=== PATIENT | male | born 1970 | race Caucasian/White ===

== ENCOUNTER 2024-09-08 12:59 | Emergency (ER) | payer SELFPAY ==
[~2024-09-08] VITALS: Ht 170.1 cm; Wt 65.8 kg
[~2024-09-08 12:59] MED LIST: DOXYCYCLINE MO100 MG PO; TRAMADOL HCL50 MG PO
[2024-09-08] MEDS ORDERED: SODIUM CHLORIDE 0.9% 1,000 ML IV ONE (13:15)
[2024-09-08] MEDS ORDERED: Ondansetron Hydrochloride 4 MG/2 ML VIAL IV ONE (13:20)
[2024-09-08 13:31] LABS: BASO # 0.1 10*3/uL (0.0-0.1); BASO % 0.4 % (0.0-1.0); EOS # 0.1 10*3/uL (0.0-0.4); EOS % 0.4 % (1.0-4.0); MEAN CELL VOLUME 89.8 fl (80.0-94.0); MEAN CORPUSCULAR HGB 30.8 pg (27.0-31.0); MEAN PLATELET VOLUME 9.0 fl (9.6-12.3); MONO # 1.1 10*3/uL (0.1-1.0); MONO % 6.5 % (3.0-9.0); NEUT # 14.4 10*3/uL (2.3-7.9); NEUT % 81.9 % (47.0-73.0); NUCLEATED RED BLOOD CELL 0.0 % (0.0-0.0); NUCLEATED RED BLOOD CELL 0.0 10*3/uL (0.0-0.0); PLATELET COUNT AUTOMATED 312 10*3/uL (130-400); RED CELL DISTRI WIDTH 12.9 % (0-14.5)
[2024-09-08 13:54] LABS: BUN 22 mg/dl (9-23)
[2024-09-08] MEDS ORDERED: CIPRO500 MG PO (14:53)
[2024-09-08] MEDS ORDERED: KETOROLAC10 MG PO (14:53)
[2024-09-08] MEDS ORDERED: FLOMAX0.4 MG PO (14:53)
[2024-09-08] MEDS ORDERED: Ondansetron4 MG PO (14:53)
== END 2024-09-08 14:59 | disposition home or self-care (01) ==
LOC: ED 12:59
PROVIDERS: Nurse Practitioner Family
DX: N13.2 Hydronephrosis with renal and ureteral calculous obstruction (principal); F10.90 Alcohol use, unspecified, uncomplicated; Z98.890 Other specified postprocedural states; Y90.9 Presence of alcohol in blood, level not specified